=== PATIENT | male | born 1965 | race Caucasian/White ===

== ENCOUNTER 2024-09-25 00:22 | Observation (INO) | payer OTHER, SELFPAY ==
--- NOTE | ~2024-09-25 | XR_ITS ---
EXAMINATION: XR abdomen gastric tube insert DATE: 09/25/2024 01:53 INDICATION: Gastrostomy tube replacement. TECHNIQUE: A supine view of the abdomen was obtained. COMPARISON: CT abdomen and pelvis 09/02/2019 FINDINGS: The lower abdomen is excluded. There are no dilated loops of bowel. The gastrostomy tube ti p is in the stomach. There is contrast in the tube and in the stomach and duodenum. IMPRESSION: 1. Gastrostomy tube tip in expected position. Reviewed, dictated and finalized at location A. CAL RECORD CODER
[2024-09-25 00:19] VITALS: BP 125/73; PULSE 88; RESP 15; TEMP 36.8; O2SAT 94
--- NOTE | 2024-09-25 01:35 | ED_ITS ---
HPI - Recheck/Abnormal Lab/Rx General Chief Complaint: Recheck/Abnormal Lab/Rx Stated Complaint: Pulled out g-tube Time Seen by Provider: 09/25/24 00:44 Source: patient Mode of arrival: EMS Limitations: no limitations History of Present Illness HPI narrative: Patient is a 58-year-old male who presents the ED via EMS with report of G-tube dislodgement. Patient is a resident of [facility]. 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 States his g-tube became dislodged today. Believes it became dislodged this morning. Reports some pain around his G-tube site. Denies fevers. Related Data Home Medications Medication Instructions Recorded Confirmed aspirin 81 mg chewable tablet 81 mg PO DAILY 04/25/20 06/10/23 multivitamin with minerals-iron mg PO 04/25/20 06/10/23 fumarate 9 mg iron/15 mL oral liquid (Multi Vitamin) aripiprazole 5 mg tablet 5 mg PO QHS 06/10/23 06/10/23 buspirone 15 mg tablet 15 mg PO TID 06/10/23 06/10/23 clonazepam 0.5 mg tablet 0.5 mg PO TID 06/10/23 06/10/23 ezetimibe 10 mg tablet 10 mg PO DAILY 06/10/23 06/10/23 famotidine 40 mg tablet 40 mg PO QHS 06/10/23 06/10/23 fentanyl 100 mcg/hr transdermal 1 patch transdermal Q72H 06/10/23 06/10/23 patch fentanyl 75 mcg/hr transdermal 1 patch transdermal Q72H 06/10/23 06/10/23 patch loratadine 10 mg tablet 10 mg PO DAILY 06/10/23 06/10/23 montelukast 10 mg tablet 10 mg PO DAILY 06/10/23 06/10/23 naloxone 4 mg/actuation nasal 4 mg intranasal Q2M PRN 06/10/23 06/10/23 spray (Narcan) onabotulinumtoxinA 200 unit 200 unit IM [id number] 06/10/23 06/10/23 solution for injection (Botox) oxycodone 15 mg tablet 30 mg PO Q4H 06/10/23 06/10/23 sertraline 100 mg tablet 100 mg PO BID 08/01/23 08/01/23 sumatriptan succinate 25 mg tablet See Rx Instructions PO .COMPLEX 06/10/23 06/10/23 trazodone 150 mg tablet 150 mg PO QHS PRN 06/10/23 06/10/23 Allergies Allergy/AdvReac Type Severity Reaction Status Date / Time adhesive tape Allergy Intermediate RASH Verified 06/10/23 16:40 Vqxfhwi-ABB-SkQ Reductase Allergy Intermediate ANXIETY Verified 06/10/23 16:40 Inhibitor [Qumamqr-Xpn-Uru Reductase Inhibitor] Review of Systems Review of Systems: All systems reviewed & are unremarkable except as noted in HPI. All systems reviewed & are unremarkable except as noted in HPI and below PMFSH Past Medical History Medical History Allergies Anxiety Arthritis Cancer of mouth Coronary artery disease Fluid level behind tympanic membrane of left ear GERD (gastroesophageal reflux disease) Heart attack Heart disease Migraine Family History Family History Mother Hypertension Grandparent Heart disease Social History Social History Social History: Caffeine-tea daily Smoking status: Never smoker Smoking end date: 11/10/12 Alcohol intake: never Substance use: never Substance use type: does not use Lack of Transportation: No Lack of Food: Sometimes True Current Housing: I Have Housing Concerned About Future Housing: No Difficulty Paying Gas/Electric Bills: No Difficulty Paying for Meds: No Currently Unemployed: No Education: High School Diploma/GED Difficulty w/ Childcare or Family Care: No Living arrangements: with family Gender identity (if verbalized by the patient): Male Spiritual care concerns: No Agree to blood products: Yes Exam Narrative: GENERAL: Appears older than stated age, chronically ill-appearing, non-toxic, in no acute distress. HEAD: Normocephalic. Large bandage over L ear/mandibular region. RESPIRATORY: Airway patent, respirations nonlabored. CARDIOVASCULAR: Regular rate and rhythm ABDOMINAL: Soft, nondistended. Normoactive BS. G-tube site in L upper abdomen. MUSCULOSKELETAL: No gross deformities. SKIN: Warm, dry, normal color. NEURO: A&O X3. Speech clear. RUBY. PSYCHIATRIC: Somewhat flat affect. Normal interaction. Course Vital Signs Vital signs: Vital Signs Temperature 98.2 F 09/25/24 00:19 Pulse Rate 88 09/25/24 00:19 Respiratory Rate 15 09/25/24 00:19 Blood Pressure 125/73 09/25/24 00:19 Pulse Oximetry 94 09/25/24 00:19 Oxygen Delivery Room Air 09/25/24 00:19 Temperature 98.2 F 09/25/24 00:19 Pulse Rate 78 09/25/24 02:38 Respiratory Rate 14 09/25/24 02:38 Blood Pressure 110/77 09/25/24 02:38 Pulse Oximetry 97 09/25/24 02:38 Oxygen Delivery Room Air 09/25/24 00:19 MDM - Recheck/Abnormal Lab/Rx MDM Narrative Medical decision making narrative: Patient with dislodged G-tube. Currently on hospice. Attempted to replace 16 German G-tube however unable to pass tubing. Meeting lots of resistance past a couple cm. Was able to place 14F Hobson coude catheter. Confirmed with imaging. Discussed case with SURY Waddell, advised to admit overnight and will replace in the am. Discussed case with Kaylynn RUCKER hospitalist, accepted patient for admission. Patient in agreement with plan. Patient is with [facility]. They were updated on care plan. Medical Records Attestation: I reviewed the patient's medical records. Imaging Data Attestation: I personally reviewed and interpreted this imaging study as follows: My impression: XR G-tube: No contrast extravasation. G-tube in place. Discharge Plan Discharge Clinical Impression: Dislodged gastrostomy tube, Cancer of mouth Patient Disposition: Still a Patient Condition: Stable Prescriptions: No Action Multi Vitamin 9 mg iron/15 mL liquid PO aspirin 81 mg tablet,chewable 81 mg PO DAILY buspirone 15 mg tablet 15 mg PO TID sertraline 100 mg tablet 100 mg PO BID fentanyl 100 mcg/hr patch 72 hour 1 patch transdermal Q72H fentanyl 75 mcg/hr patch 72 hour 1 patch transdermal Q72H oxycodone 15 mg tablet 30 mg PO Q4H sumatriptan succinate 25 mg tablet See Rx Instructions PO .COMPLEX Rx Instructions: take 1 tab at onset of headache; if no relief may repeat 1 tab after at least 2 hrs; max = 4 tabs/24 hr PO loratadine 10 mg tablet 10 mg PO DAILY trazodone 150 mg tablet 150 mg PO QHS PRN aripiprazole 5 mg tablet 5 mg PO QHS clonazepam 0.5 mg tablet 0.5 mg PO TID montelukast 10 mg tablet 10 mg PO DAILY famotidine 40 mg tablet 40 mg PO QHS ezetimibe 10 mg tablet 10 mg PO DAILY naloxone [Narcan] 4 mg/actuation spray,non-aerosol 4 mg intranasal Q2M PRN Rx Instructions: spray 1 dose into ONE nostril; alternate nostrils w each dose until help arrives Botox 200 unit recon soln 200 unit IM [id number] Rx Instructions: as a single dose Follow-up/Referrals: Salvatore,KACI Rousseau [Primary Care Provider] -
[2024-09-25] MEDS: HYDROmorphone HCL INJ (*CRX) 1 MG/ML SYR IM (01:43)
[2024-09-25 02:38] VITALS: BP 110/77; PULSE 78; RESP 14; O2SAT 97
[2024-09-25] MEDS: HYDROmorphone HCL INJ (*CRX) 1 MG/ML SYR IV PUSH (02:51)
--- NOTE | 2024-09-25 03:10 | P.HP_ITS ---
H&P: HPI History of Present Illness Date/Time: 09/25/24 04:00 Chief Complaint: Dislodged G-tube. Narrative: This is a pleasant 58-year-old male with metastatic oral cancer who presented to the emergency department via EMS from [facility] after his G-tube became dislodged. The patient provides the following history. Sometime yesterday morning his G-tube got dislodged and there were difficulties getting it replaced in the ED and he is being admitted in this setting for GI consult. He is on [facility] for his terminal cancer and they were contacted and are aware of the patient's hospitalization. At the time my evaluation the patient has no complaints and denies fever, headache, chest pain, shortness of breath, abdominal pain, nausea, vomiting, and diarrhea. Review of Systems Review of Systems: 12 systems were reviewed and are negativ e except for as per HPI. [facility] Past Medical History Medical History (Updated 09/25/24 @ 06:30 by Kaylynn Huntley PA-C) Allergies Anxiety Arthritis Cancer of mouth Coronary artery disease Gastroesophageal reflux disease Heart attack Heart disease Migraine Oral cancer Surgical History Surgical History (Updated 09/25/24 @ 06:30 by Kaylynn Huntley PA-C) History of coronary artery stent placement Family History Family History Mother Hypertension Grandparent Heart disease Social History Social History (Updated 09/25/24 @ 06:31 by Kaylynn Huntley PA-C) Social History: Surrogate medical decision maker: Lexie Greenberg, mother. Code status: Do not resuscitate. Smoking status: Former smoker Smoking end date: 11/10/12 Alcohol intake: never Substance use: never Substance use type: does not use Do You Feel Safe in your Home?: Yes Lack of Transportation: No Lack of Food: Never True Current Housing: I Have Housing Concerned About Future Housing: No Difficulty Paying Gas/Electric Bills: No Difficulty Paying for Meds: No Currently Unemployed: No Education: High School Diploma/GED Difficulty w/ Childcare or Family Care: No Spiritual care concerns: No Agree to blood products: Yes Meds Home Medications and Allergies Home Medications Medication Instructions Recorded Confirmed Type aspirin 81 mg chewable tablet 81 mg feeding tube DAILY 04/25/20 09/25/24 History buspirone 15 mg tablet 30 mg PO Q12H 06/10/23 09/25/24 History clonazepam 0.5 mg tablet 0.5 mg PO Q12H 06/10/23 09/25/24 History ezetimibe 10 mg tablet 10 mg PO DAILY 06/10/23 09/25/24 History famotidine 40 mg tablet 20 mg PO BID 06/10/23 09/25/24 History Adults Multivitamin 1 tab-cap feeding tube DAILY 09/25/24 09/25/24 History acetaminophen 320 mg/10 mL oral 320 mg PO Q4H PRN Pain (Scale 09/25/24 09/25/24 History suspension Score 1-3) baclofen 10 mg tablet 10 mg feeding tube TID 09/25/24 09/25/24 History bisacodyl 10 mg rectal suppository 10 mg RECTAL PRN PRN Constipation 09/25/24 09/25/24 History fentanyl 50 mcg/hr transdermal 1 patch topical .Q72HR 09/25/24 09/25/24 History patch magnesium hydroxide 400 mg/5 mL 30 ml feeding tube HS PRN 09/25/24 09/25/24 History oral suspension (Milk of Magnesia) Constipation methadone 10 mg/5 mL oral solution 10 mg PO BID 09/25/24 09/25/24 History morphine 10 mg/5 mL oral solution 5 mg feeding tube Q2H PRN Pain 09/25/24 09/25/24 History (Scale Score 7-10) morphine 10 mg/5 mL oral solution 5 mg feeding tube Q8H 09/25/24 09/25/24 History ondansetron 4 mg disintegrating 8 mg feeding tube Q8H PRN Nausea 09/25/24 09/25/24 History tablet polyethylene glycol 17 g feeding tube DAILY 09/25/24 09/25/24 History pregabalin 50 mg capsule 50 mg feeding tube HS 09/25/24 09/25/24 History sennosides 8.6 mg capsule (senna) 17.2 mg feeding tube BID 09/25/24 09/25/24 History silver sulfadiazine 1 % topical 1 applic topical DAILY 09/25/24 09/25/24 History cream sumatriptan succinate 100 mg tablet 100 mg PO DAILY PRN Headache 09/25/24 09/25/24 History tamsulosin 0.4 mg capsule 0.4 mg PO DAILY 09/25/24 09/25/24 History Allergies Allergy/AdvReac Type Severity Reaction Status Date / Time adhesive tape Allergy Intermediate RASH Verified 09/25/24 04:58 Nqevopi-BDE-VfT Reductase Allergy Intermediate ANXIETY Verified 09/25/24 04:58 Inhibitor [Rzedtuw-Iwr-Ehb Reductase Inhibitor] Vital Signs Vital Signs - 24 hr 09/25/24 00:19 09/25/24 02:38 Temperature 98.2 F Pulse Rate 88 78 Respiratory Rate 15 14 Blood Pressure 125/73 110/77 Pulse Oximetry 94 97 Oxygen Delivery Room Air Exam Narrative: General: Chronically ill-appearing gentleman the semi-Weiss position in bed. Weight: 50.8 kg. BMI: 20.9. HEENT: PERRL, EOMI. There is a dressing over the left ear which was not removed for examination. Sclera anicteric. Tacky mucous membranes. Maxillary obturator in place. Neck: Supple. Respiratory: Lungs are clear to auscultation bilaterally. Cardiovascular: Regular rate and rhythm with S1-S2. Gastrointestinal: Abdomen is soft, nontender, and nondistended with positive bowel sounds. Skin: Warm and dry. Extremities: No cyanosis, clubbing, or significant edema. Radial and pedal pulses intact. Neurological: Alert. Cranial nerves 2-12 are grossly intact. No gross focal deficits to casual conversation. Psychiatric: Pleasant and cooperative with normal mood and affect. Assessment and Plan Assessment and plan (1) Dislodged gastrostomy tube: Code(s): T85.528A - Displacement of other gastrointestinal prosthetic devices, implants and grafts, initial encounter Status: Acute (2) Hospice care patient: Code(s): Z51.5 - Encounter for palliative care Status: Acute (3) Oral cancer: Code(s): C06.9 - Malignant neoplasm of mouth, unspecified Status: Acute Plan The patient presented to the emergency department for evaluation after his G- tube became dislodged as detailed in HPI. Labs, imaging, EKG, and all reports were personally reviewed. He will be NPO in anticipation of replaced G-tube placement today. Analgesics are available as needed. He is on hospice care through [facility] and they are aware of his hospitalization. His home medications will be reviewed and resumed as appropriate. Findings and treatment plan were discussed with the patient. Questions were solicited and answered to satisfaction. The patient's medical management will be taken over by the hospitalist team in a.m. Quality VTE Prophylaxis VTE prophylaxis: mechanical ordered If No VTE Prophylaxis Answer both mechanical and pharmacologic: Reason no pharmacologic proph: medical contraindication (upcoming procedure) The patient has been admitted under observation status. Hospitalist MIPS Advance Care Plan I have confirmed that the patient's Advanced Care Plan is present, code status is documented, or surrogate decision maker is listed in patient medical record.: Yes Medication Reconciliation I have utilized all available resources to obtain, update and review the patients current medications (includes all prescriptions, OTC, herbals, ca nnabis, and nutritional supplements).: Yes
[2024-09-25 03:24] VITALS: BMI 20.9
[2024-09-25 03:37] VITALS: BMI 20.9
[2024-09-25 03:39] VITALS: BMI 24.4
[2024-09-25 03:45] VITALS: BP 123/72; PULSE 83; RESP 18; TEMP 36.5; O2SAT 97
[2024-09-25] MEDS: MORPHINE SULFATE (*CRX) 4 MG/ML INJ IV PUSH ×3 (06:32→20:15)
--- NOTE | 2024-09-25 11:46 | PC.NURSE ---
Addendum entered by Hannah Melendez RN 09/25/24 14:21: Dr. Hammond came to bedside and replaced catheter to G-tube site. No other orders at this time. Original Note: Catheter that was in place to keep G-tube site open became dislodged. Dr. Hammond called and notified. No intervention at this time. Provider to see patient.
--- NOTE | 2024-09-25 12:54 | P.CONGI_ITS ---
Assessment and Plan Assessment and plan (1) PEG tube malfunction: Code(s): K94.23 - Gastrostomy malfunction Status: Acute Assessment and Plan: Temporary smallwood catheter placed back and balloon insuflated with 8 cc of saline. Will schedule formal PEG placement with endoscopy on Friday am. Plan as above GI Consult Note Consult date/time: 09/25/24 12:54 HPI: Chaim Romo is [id number] male with metastatic oral cancer who presented to the emergency department via EMS from [facility] after his G- tube became dislodged. The ER provider was able to keep the G tube orifice patent with a 12 F smallwood catheter. Review of Systems Review of Systems: All systems reviewed & are unremarkable except as noted in HPI and below PMFSH Past Medical History Medical History (Updated 09/25/24 @ 12:57 by Iron Hammond MD) Allergies Anxiety Arthritis Cancer of mouth Coronary artery disease Gastroesophageal reflux disease Heart attack Heart disease Migraine Oral cancer Surgical History Surgical History (Updated 09/25/24 @ 06:30 by Kaylynn Huntley PA-C) History of coronary artery stent placement Family History Family History Mother Hypertension Grandparent Heart disease Social History Social History (Updated 09/25/24 @ 06:31 by Kaylynn Huntley PA-C) Social History: Surrogate medical decision maker: Lexie Greenberg, . Code status: Do not resuscitate. Smoking status: Former smoker Smoking end date: 11/10/12 Alcohol intake: never Substance use: never Substance use type: does not use Do You Feel Safe in your Home?: Yes Lack of Transportation: No Lack of Food: Never True Current Housing: I Have Housing Concerned About Future Housing: No Difficulty Paying Gas/Electric Bills: No Difficulty Paying for Meds: No Currently Unemployed: No Education: High School Diploma/GED Difficulty w/ Childcare or Family Care: No Spiritual care concerns: No Agree to blood products: Yes Meds Home Medications and Allergies Home Medications Medication Instructions Recorded Confirmed Type aspirin 81 mg chewable tablet 81 mg feeding tube DAILY 04/25/20 09/25/24 History buspirone 15 mg tablet 30 mg PO Q12H 06/10/23 09/25/24 History clonazepam 0.5 mg tablet 0.5 mg PO Q12H 06/10/23 09/25/24 History ezetimibe 10 mg tablet 10 mg PO DAILY 06/10/23 09/25/24 History famotidine 40 mg tablet 20 mg PO BID 06/10/23 09/25/24 History Adults Multivitamin 1 tab-cap feeding tube DAILY 09/25/24 09/25/24 History acetaminophen 320 mg/10 mL oral 320 mg PO Q4H PRN Pain (Scale 09/25/24 09/25/24 History suspension Score 1-3) baclofen 10 mg tablet 10 mg feeding tube TID 09/25/24 09/25/24 History bisacodyl 10 mg rectal suppository 10 mg RECTAL PRN PRN Constipation 09/25/24 09/25/24 History fentanyl 50 mcg/hr transdermal 1 patch topical .Q72HR 09/25/24 09/25/24 History patch magnesium hydroxide 400 mg/5 mL 30 ml feeding tube HS PRN 09/25/24 09/25/24 History oral suspension (Milk of Magnesia) Constipation methadone 10 mg/5 mL oral solution 10 mg PO BID 09/25/24 09/25/24 History morphine 10 mg/5 mL oral solution 5 mg feeding tube Q2H PRN Pain 09/25/24 09/25/24 History (Scale Score 7-10) morphine 10 mg/5 mL oral solution 5 mg feeding tube Q8H 09/25/24 09/25/24 History ondansetron 4 mg disintegrating 8 mg feeding tube Q8H PRN Nausea 09/25/24 09/25/24 History tablet polyethylene glycol 17 g feeding tube DAILY 09/25/24 09/25/24 History pregabalin 50 mg capsule 50 mg feeding tube HS 09/25/24 09/25/24 History sennosides 8.6 mg capsule (senna) 17.2 mg feeding tube BID 09/25/24 09/25/24 History silver sulfadiazine 1 % topical 1 applic topical DAILY 09/25/24 09/25/24 History cream sumatriptan succinate 100 mg tablet 100 mg PO DAILY PRN Headache 09/25/24 09/25/24 History tamsulosin 0.4 mg capsule 0.4 mg PO DAILY 09/25/24 09/25/24 History Allergies Allergy/AdvReac Type Severity Reaction Status Date / Time adhesive tape Allergy Intermediate RASH Verified 09/25/24 04:58 Dtedhws-CWL-KuR Reductase Allergy Intermediate ANXIETY Verified 09/25/24 04:58 Inhibitor [Jfmueuo-Hkw-Naf Reductase Inhibitor] Vital Signs Vital Signs - 24 hr 09/25/24 00:19 09/25/24 02:38 09/25/24 03:45 Temperature 98.2 F 97.7 F Pulse Rate 88 78 83 Respiratory Rate 15 14 18 Blood Pressure 125/73 110/77 123/72 Pulse Oximetry 94 97 97 Oxygen Delivery Room Air Exam Narrative: Small PEG orifice, smallwood catheter dislodged.
--- NOTE | 2024-09-25 13:03 | PM.IMPN ---
Progress Note: A&P Assessment and Plan (1) Dislodged gastrostomy tube: Code(s): T85.528A - Displacement of other gastrointestinal prosthetic devices, implants and grafts, initial encounter Status: Acute Assessment and Plan: Patient G-tube dislodgement. He is unsure when the G-tube became dislodged. In the ED they attempted to replace 16 Korean G-tube however unable to pass tubing due to resistance. Was able to place 14F Smallwood coude catheter. Abdomen XR: G tube tip in expected position On exam today 09/25, G tube opening with slight bloody discharge. Smallwood that was placed in the ED was found dislodged. GI Dr. Hammond made aware and no need for reinsertion at that time NG tube ordered for tube feeds for the interim, however patient refused placement GI consulted Temporary smallwood catheter replaced and balloon insufflated with 8 cc of saline. Will schedule formal PEG placement with endoscopy on Friday am. (2) Hospice care patient: Code(s): Z51.5 - Encounter for palliative care Status: Acute Assessment and Plan: He is on hospice care through [facility] and they are aware of his hospitalization. 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 Time Spent With Patient Time with patient: 25 - 35 minutes Subjective Date/time seen: 09/25/24 13:03 Interval history: 58-year-old male with metastatic oral cancer on [facility] who presented to the emergency department via EMS from [facility] after his G-tube became dislodged. Patient is pleasant lying comfortably in bed. he endorses slight abdominal pain. On exam his G tube opening has slightly bloody discharge. Smallwood that was placed in the ED was found dislodged. SURY Hammond made aware and no need for reinsertion at that time . Patient is unsure when this G tube became dislodged however per nurse the tubing was in place this morning during her assessment. Patient has no new complaints denying chest pain, shortness a breath palpitations, nausea / vomiting. He was evaluated by GI today who plans for a PEG tube placement on Friday. Patient was having NG tube in the interim however he refuses. Review of Systems Review of Systems: 12 systems were reviewed and are negative except for as per HPI. All systems reviewed & are unremarkable except as noted in HPI and below Exam Narrative: AF HR 83 RR 18 SpO2 97 BP 123/72 General: frail male in no acute respiratory distress who is chronically ill appearing, lying semi recumbent in bed. HEENT: Normocephalic. Atraumatic. Extraocular movement intact. Sclera clear and anicteric. No facial asymmetry. Dressing over his left ear which was not removed for exam. Chest: Lungs are clear to auscultation bilaterally. No wheezes or crackles. CV: Heart was regular rate and rhythm. S1/S2. No murmurs, gallops, or rubs. Abd: Abdomen was soft. Generalized tenderness without guarding. Positive bowel sounds. No organomegaly or masses. G tube opening with slight bloody discharge. Red rubber that was placed in the ED was found dislodged. Nondistended. Ext: No clubbing, cyanosis, or edema. 2+ DP pulses bilaterally. Neuro: Patient is alert. Cranial nerves 2-12 are intact. Speech is clear. Psych: Normal mood and affect. Patient is pleasant and cooperative. Skin: Warm and dry. No rashes noted. Objective Data Vital Signs Vital Signs: Vital Signs - 24 hr 09/25/24 00:19 09/25/24 02:38 09/25/24 03:45 Temperature 98.2 F 97.7 F Pulse Rate 88 78 83 Respiratory Rate 15 14 18 Blood Pressure 125/73 110/77 123/72 Pulse Oximetry 94 97 97 Oxygen Delivery Room Air Intake/Output Intake/Output: Intake & Output 09/22/24 09/23/24 09/24/24 09/25/24 23:59 23:59 23:59 23:59 Intake Total 0 Balance 0 Meds/Results Medications: Active Medications Generic Name Dose Route Start Last Admin Trade Name Freq PRN Reason Stop Dose Admin Morphine Sulfate 4 mg 09/25/24 06:25 09/25/24 06:32 Morphine Sulfate (*Crx) 4 Mg/Ml Inj IV PUSH 4 mg Q4H PRN Administration Pain Rated 7-10 Radiology Results: ITS Impressions Abdomen X-Ray 09/25/24 06:16 IMPRESSION: 1. Gastrostomy tube tip in expected position. Quality VTE Prophylaxis VTE prophylaxis: mechanical ordered
[2024-09-25 14:00] VITALS: BP 119/77; PULSE 83; RESP 16; TEMP 36.4; O2SAT 96
[2024-09-25 20:00] VITALS: PULSE 83; RESP 16; O2SAT 96
[2024-09-25 22:00] VITALS: PULSE 78; RESP 18; TEMP 36.8; O2SAT 96
[2024-09-26] MEDS: MORPHINE SULFATE (*CRX) 4 MG/ML INJ IV PUSH ×5 (01:01→20:32)
[2024-09-26 06:00] VITALS: BP 124/84; PULSE 87; RESP 18; TEMP 36.6; O2SAT 97
[2024-09-26] MEDS: ONDANSETRON INJ 4 MG/2 ML VIAL IV PUSH ×4 (06:31→20:48)
[2024-09-26] MEDS: DEXTROSE 5%/0.45% SOD CHL 1,000 ML 100 ML IV CONT ×2 (06:31→16:35)
--- NOTE | 2024-09-26 08:02 | PM.IMPN ---
Progress Note: A&P Assessment and Plan (1) Dislodged gastrostomy tube: Code(s): T85.528A - Displacement of other gastrointestinal prosthetic devices, implants and grafts, initial encounter Status: Acute Assessment and Plan: Patient G-tube dislodgement. He is unsure when the G-tube became dislodged but believes it was sometime this morning 09/25. In the ED they attempted to replace 16 Vietnamese G-tube however unable to pass tubing due to resistance. Was able to place 14F Smallwood coude catheter. Abdomen XR: G tube tip in expected position On exam today 09/25, G tube opening with slight bloody discharge. Smallwood that was placed in the ED was found dislodged. GI Dr. Hammond made aware and no need for reinsertion at that time NG tube ordered for tube feeds for the interim, however patient is unable to have NG tube placed given tumor burden GI consulted Temporary smallwood catheter replaced and balloon insufflated with 8 cc of saline. Will schedule formal PEG placement with endoscopy on Friday at 1300 (2) Hospice care patient: Code(s): Z51.5 - Encounter for palliative care Status: Acute Assessment and Plan: He is on hospice care through [facility] and they are aware of his hospitalization. 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 Time Spent With Patient Time with patient: 25 - 35 minutes Subjective Date/time seen: 09/26/24 08:02 Interval history: 58-year-old male with metastatic oral cancer on [facility] who presented to the emergency department via EMS from [facility] after his G-tube became dislodged. Patient is pleasant lying comfortably in bed. He continues to endorse generalized abdominal pain. He states that this started after the G-tube replacement in the ED. he has no other complaints denying chest pain, shortness a breath, palpitations, nausea / vomiting. he was evaluated by GI today who plans to place a PEG tube tomorrow afternoon. Review of Systems Review of Systems: All systems reviewed & are unremarkable except as noted in HPI and below Exam Narrative: AF HR 87 RR 18 SpO2 97 BP 124/84 General: frail male in no acute respiratory distress who is chronically ill appearing, lying semi recumbent in bed. HEENT: Normocephalic. Atraumatic. Extraocular movement intact. Sclera clear and anicteric. No facial asymmetry. Dressing over his left ear which was not removed for exam. Chest: Lungs are clear to auscultation bilaterally. No wheezes or crackles. CV: Heart was regular rate and rhythm. S1/S2. No murmurs, gallops, or rubs. Abd: Abdomen was soft. Generalized tenderness without guarding. Positive bowel sounds. No organomegaly or masses. Smallwood catheter in place to keep G tube orifice patent. Nondistended. Ext: No clubbing, cyanosis, or edema. 2+ DP pulses bilaterally. Neuro: Patient is alert. Cranial nerves 2-12 are intact. Speech is clear. Objective Data Vital Signs Vital Signs: Vital Signs - 24 hr 09/25/24 09:13 09/25/24 14:00 09/25/24 20:00 Temperature 97.6 F Pulse Rate 83 83 Respiratory Rate 16 16 Blood Pressure 119/77 Pulse Oximetry 96 96 Oxygen Delivery Room Air Room Air 09/25/24 22:00 09/26/24 06:00 Temperature 98.2 F 97.9 F Pulse Rate 78 87 Respiratory Rate 18 18 Blood Pressure 124/84 Pulse Oximetry 96 97 Oxygen Delivery Intake/Output Intake/Output: Intake & Output 09/23/24 09/24/24 09/25/24 09/26/24 23:59 23:59 23:59 23:59 Intake Total 0 Output Total 650 0 Balance -650 0 Meds/Results Medications: Active Medications Generic Name Dose Route Start Last Admin Trade Name Freq PRN Reason Stop Dose Admin Dextrose/Sodium Chloride 1,000 mls @ 100 mls/hr 09/26/24 06:00 09/26/24 06:31 Dextrose 5% Sodium Chloride 0.45% IV CONT 100 mls/hr .Q10H [place] Administration Morphine Sulfate 4 mg 09/25/24 06:25 09/26/24 05:38 Morphine Sulfate (*Crx) 4 Mg/Ml Inj IV PUSH 4 mg Q4H PRN Administration Pain Rated 7-10 Ondansetron HCl 4 mg 09/26/24 06:00 09/26/24 06:31 Ondansetron Inj 4 Mg/2 Ml Vial IV PUSH 4 mg Q4H PRN Administration Nausea And Vomiting Radiology Results: ITS Impressions Abdomen X-Ray 09/25/24 06:16 IMPRESSION: 1. Gastrostomy tube tip in expected position. Quality VTE Prophylaxis VTE prophylaxis: mechanical ordered
--- NOTE | 2024-09-26 10:17 | WPDGIPROGNO ---
Progress Note: A&P Assessment and Plan (1) PEG tube malfunction: Code(s): K94.23 - Gastrostomy malfunction Status: Acute Assessment and Plan: The patient is in stable condition with respect to yesterday. PEG placement scheduled for tomorrow after 1:00 p.m.. Time Spent With Patient Time with patient: less than 15 minutes Subjective Date/time seen: 09/26/24 10:17 Objective Data Vital Signs Vital Signs: Vital Signs - 24 hr 09/25/24 14:00 09/25/24 20:00 09/25/24 22:00 Temperature 97.6 F 98.2 F Pulse Rate 83 83 78 Respiratory Rate 16 16 18 Blood Pressure 119/77 Pulse Oximetry 96 96 96 Oxygen Delivery Room Air 09/26/24 06:00 09/26/24 08:53 Temperature 97.9 F Pulse Rate 87 Respiratory Rate 18 Blood Pressure 124/84 Pulse Oximetry 97 Oxygen Delivery Room Air Intake/Output Intake/Output: Intake & Output 09/23/24 09/24/24 09/25/24 09/26/24 23:59 23:59 23:59 23:59 Intake Total 0 Output Total 650 0 Balance -650 0 Meds/Results Medications: Active Medications Generic Name Dose Route Start Last Admin Trade Name Freq PRN Reason Stop Dose Admin Dextrose/Sodium Chloride 1,000 mls @ 100 mls/hr 09/26/24 06:00 09/26/24 06:31 Dextrose 5% Sodium Chloride 0.45% IV CONT 100 mls/hr .Q10H [place] Administration Morphine Sulfate 4 mg 09/25/24 06:25 09/26/24 05:38 Morphine Sulfate (*Crx) 4 Mg/Ml Inj IV PUSH 4 mg Q4H PRN Administration Pain Rated 7-10 Ondansetron HCl 4 mg 09/26/24 06:00 09/26/24 06:31 Ondansetron Inj 4 Mg/2 Ml Vial IV PUSH 4 mg Q4H PRN Administration Nausea And Vomiting Radiology Results: ITS Impressions Abdomen X-Ray 09/25/24 06:16 IMPRESSION: 1. Gastrostomy tube tip in expected position.
[2024-09-26 14:00] VITALS: BP 124/71; PULSE 82; RESP 16; TEMP 36.8; O2SAT 97
[2024-09-26 20:30] VITALS: PULSE 73; RESP 20; O2SAT 97
[2024-09-26 20:34] VITALS: BP 135/78; PULSE 73; RESP 20; TEMP 36.4; O2SAT 97
[2024-09-27] VITALS (10 sets, daily range): BP systolic 106–1125; BP diastolic 65–83; PULSE 63–87; RESP 12–20; TEMP 36.1–37.3; O2SAT 95–98; BMI 21.5
[2024-09-27] MEDS: MORPHINE SULFATE (*CRX) 4 MG/ML INJ IV PUSH ×3 (02:05→20:21)
[2024-09-27] MEDS: DEXTROSE 5%/0.45% SOD CHL 1,000 ML 100 ML IV CONT (02:05)
[2024-09-27] MEDS: ONDANSETRON INJ 4 MG/2 ML VIAL IV PUSH ×4 (02:05→21:17)
--- NOTE | 2024-09-27 08:46 | PM.IMPN ---
Progress Note: A&P Assessment and Plan (1) Dislodged gastrostomy tube: Code(s): T85.528A - Displacement of other gastrointestinal prosthetic devices, implants and grafts, initial encounter Status: Acute Assessment and Plan: Patient G-tube dislodgement. He is unsure when the G-tube became dislodged but believes it was sometime this morning 09/25. In the ED they attempted to replace 16 Lithuanian G-tube however unable to pass tubing due to resistance. Was able to place 14F Smallwood coude catheter. Abdomen XR: G tube tip in expected position On exam today 09/25, G tube opening with slight bloody discharge. Smallwood that was placed in the ED was found dislodged. GI Dr. Hammond made aware and no need for reinsertion at that time NG tube ordered for tube feeds for the interim, however patient is unable to have NG tube placed given tumor burden GI consulted Temporary smallwood catheter replaced and balloon insufflated with 8 cc of saline. Per RN this was found out on am assessment Schedule formal PEG placement with endoscopy today with Dr. Hammond Nutrition consulted, will start tube feeds per their recommendations when patient is cleared (2) Hospice care patient: Code(s): Z51.5 - Encounter for palliative care Status: Acute Assessment and Plan: He is on hospice care through [facility] and they are aware of his hospitalization. 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 Time Spent With Patient Time with patient: 25 - 35 minutes Subjective Date/time seen: 09/27/24 08:46 Interval history: 58-year-old male with metastatic oral cancer on [facility] who presented to the emergency department via EMS from [facility] after his G-tube became dislodged. Patient is pleasant lying in his bed. Per RN on morning assessment patient Smallwood catheter that was maintaining patentcy for patient's G tube had fallen out. Patient is scheduled to have a new peg tube placed today. After placement will start patient on tube feeds. Nutrition recommendations have been made. Patient endorses slight abdominal pain but has no other complaints denying chest pain, shortness of breath, nausea/vomiting. Review of Systems Review of Systems: All systems reviewed & are unremarkable except as noted in HPI and below Exam Narrative: AF HR 70 RR 18 SpO2 97 BP 125/69 General: frail male in no acute respiratory distress who is chronically ill appearing, lying semi recumbent in bed. HEENT: Normocephalic. Atraumatic. Extraocular movement intact. Sclera clear and anicteric. No facial asymmetry. Dressing over his left ear which was not removed for exam. Chest: Lungs are clear to auscultation bilaterally. No wheezes or crackles. CV: Heart was regular rate and rhythm. S1/S2. No murmurs, gallops, or rubs. Abd: Abdomen was soft. Generalized tenderness without guarding. Positive bowel sounds. No organomegaly or masses. G tube opening with slight bloody discharge. Nondistended. Ext: No clubbing, cyanosis, or edema. 2+ DP pulses bilaterally. Neuro: Patient is alert. Cranial nerves 2-12 are intact. Speech is clear. Objective Data Vital Signs Vital Signs: Vital Signs - 24 hr 09/26/24 08:53 09/26/24 14:00 09/26/24 20:34 Temperature 98.2 F 97.5 F L Pulse Rate 82 73 Respiratory Rate 16 20 Blood Pressure 124/71 135/78 Pulse Oximetry 97 97 Oxygen Delivery Room Air 09/26/24 20:30 09/27/24 06:14 Temperature 99.2 F Pulse Rate 73 87 Respiratory Rate 20 18 Blood Pressure 106/66 Pulse Oximetry 97 95 Oxygen Delivery Room Air Intake/Output Intake/Output: Intake & Output 09/24/24 09/25/24 09/26/24 09/27/24 23:59 23:59 23:59 23:59 Intake Total 0 1000 1000 Output Total 650 350 Balance -919 837 2104 Meds/Results Medications: Active Medications Generic Name Dose Route Start Last Admin Trade Name Freq PRN Reason Stop Dose Admin Dextrose/Sodium Chloride 1,000 mls @ 100 mls/hr 09/26/24 06:00 09/27/24 02:05 Dextrose 5% Sodium Chloride 0.45% IV CONT 100 mls/hr .Q10H [place] Administration Morphine Sulfate 4 mg 09/25/24 06:25 09/27/24 08:01 Morphine Sulfate (*Crx) 4 Mg/Ml Inj IV PUSH 4 mg Q4H PRN Administration Pain Rated 7-10 Ondansetron HCl 4 mg 09/26/24 06:00 09/27/24 08:01 Ondansetron Inj 4 Mg/2 Ml Vial IV PUSH 4 mg Q4H PRN Administration Nausea And Vomiting Radiology Results: ITS Impressions Abdomen X-Ray 09/25/24 06:16 IMPRESSION: 1. Gastrostomy tube tip in expected position. Quality VTE Prophylaxis VTE prophylaxis: mechanical ordered
--- NOTE | 2024-09-27 09:41 | PC.NURSE ---
Called [facility] to get patient's previous tube feeding recommendations. Per Zhane RN at facility, patient was on Osmolite 1.5 at 55 mL/hr with a 45 mL flush per hour. Receiving [employer] Custodian Nisha called and notified on these recommendations. Patient is going down for peg tube placement at 13:30 today. Yoanna aware, states patient will likely discharge tomorrow back to [facility] if tube feedings tolerated after surgery.
--- NOTE | 2024-09-27 11:45 | PC.NURSE ---
To GI Lab per [renate], IV [20 R FA]. Report given to [Alexandra].
--- NOTE | 2024-09-27 11:47 | PCDIET ---
TUBE FEEDING RECOMMENDATIONS: Osmolite 1.5 @ 55 ml/h provides 1815 kcal, 75 g protein, 922 kcal. Flush 180 ml q 4 hours. Total water 2000 ml/day.
[2024-09-27] MEDS: LACTATED RINGERS 1,000 ML 150 ML IV CONT (12:12)
--- NOTE | 2024-09-27 12:23 | P.PNAN_ITS ---
Anes - Initial Pre Proc Eval Procedure: Operation Date: 09/27/24 13:30 Proposed Procedures p Percutaneous Endoscopic Gastrostomy - Iron Hammond MD Date/Time: 09/27/24 12:23 Surgeon: Kadie Davis PA-C Pre Op Diagnosis: dislodged g-tube Patient Data Age: 58 Gender: M Height: 1.68 m Weight: 60.5 kg Last Vital Signs Temp 36.1 C L 09/27/24 12:08 Pulse 70 09/27/24 12:08 Resp 18 09/27/24 12:08 BP 1125/69 H 09/27/24 12:08 Pulse Ox 97 09/27/24 12:08 O2 Del Method Room Air 09/27/24 12:08 Allergies Allergy/AdvReac Type Severity Reaction Status Date / Time adhesive tape Allergy Intermediate RASH Verified 09/27/24 11:57 Nhdapxz-RUT-SmV Reductase AdvReac Intermediate ANXIETY Verified 09/27/24 12:01 Inhibitor [Jjmqhde-Yuu-Xop Reductase Inhibitor] Home Medications Medication Instructions Recorded Confirmed Type aspirin 81 mg chewable tablet 81 mg feeding tube DAILY 04/25/20 09/25/24 History buspirone 15 mg tablet 30 mg PO Q12H 06/10/23 09/25/24 History clonazepam 0.5 mg tablet 0.5 mg PO Q12H 06/10/23 09/25/24 History ezetimibe 10 mg tablet 10 mg PO DAILY 06/10/23 09/25/24 History famotidine 40 mg tablet 20 mg PO BID 06/10/23 09/25/24 History Adults Multivitamin 1 tab-cap feeding tube DAILY 09/25/24 09/25/24 History acetaminophen 320 mg/10 mL oral 320 mg PO Q4H PRN Pain (Scale 09/25/24 09/25/24 History suspension Score 1-3) baclofen 10 mg tablet 10 mg feeding tube TID 09/25/24 09/25/24 History bisacodyl 10 mg rectal suppository 10 mg RECTAL PRN PRN Constipation 09/25/24 09/25/24 History fentanyl 50 mcg/hr transdermal 1 patch topical .Q72HR 09/25/24 09/25/24 History patch magnesium hydroxide 400 mg/5 mL 30 ml feeding tube HS PRN 09/25/24 09/25/24 History oral suspension (Milk of Magnesia) Constipation methadone 10 mg/5 mL oral solution 10 mg PO BID 09/25/24 09/25/24 History morphine 10 mg/5 mL oral solution 5 mg feeding tube Q2H PRN Pain 09/25/24 09/25/24 History (Scale Score 7-10) morphine 10 mg/5 mL oral solution 5 mg feeding tube Q8H 09/25/24 09/25/24 History ondansetron 4 mg disintegrating 8 mg feeding tube Q8H PRN Nausea 09/25/24 09/25/24 History tablet polyethylene glycol 17 g feeding tube DAILY 09/25/24 09/25/24 History pregabalin 50 mg capsule 50 mg feeding tube HS 09/25/24 09/25/24 History sennosides 8.6 mg capsule (senna) 17.2 mg feeding tube BID 09/25/24 09/25/24 History silver sulfadiazine 1 % topical 1 applic topical DAILY 09/25/24 09/25/24 History cream sumatriptan succinate 100 mg tablet 100 mg PO DAILY PRN Headache 09/25/24 09/25/24 History tamsulosin 0.4 mg capsule 0.4 mg PO DAILY 09/25/24 09/25/24 History Patient hx anesthesia problems: none Family hx anesthesia problems: none Results Review: All pre-operative results and documents have been reviewed as part of the pre- operative evaluation. [facility] Past Medical History Medical History Allergies Anxiety Arthritis Cancer of mouth Coronary artery disease Gastroesophageal reflux disease Heart attack Heart disease Migraine Oral cancer Surgical History Surgical History History of coronary artery stent placement Family History Family History Mother Hypertension Grandparent Heart disease Social History Social History Social History: Surrogate medical decision maker: Lexie Greenberg, . Code status: Do not resuscitate. Smoking status: Former smoker Smoking end date: 11/10/12 Alcohol intake: never Substance use: never Substance use type: does not use Do You Feel Safe in your Home?: Yes Lack of Transportation: No Lack of Food: Never True Current Housing: I Have Housing Concerned About Future Housing: No Difficulty Paying Gas/Electric Bills: No Difficulty Paying for Meds: No Currently Unemployed: No Education: High School Diploma/GED Difficulty w/ Childcare or Family Care: No Spiritual care concerns: No Agree to blood products: Yes Anes - Eval Final PreProcedure Day of Procedure 09/27/24 12:23 Patient weight: normal Heart: regular rate and rhythm Lungs: clear to auscultation Airway: Mallampati scale class IV, special considerations poor opening and poor dentition and other (hard palate excision- open to nasopharynx, upper plate) Neurological: alert and oriented Last oral intake: >/= 8 hours ASA classification: IV Emergent: no Anesthetic plan: proceed Anesthesia type and monitoring: general GIVS and standard monitoring Results Review: All pre-operative results and documents have been reviewed as part of the pre- operative evaluation. Informed Consent: The patient's anesthetic plan and its attendant risks and benefits were discussed with the patient/family/POA. Questions were solicited and answers provided to the satisfaction of the patient/family/POA.
--- NOTE | 2024-09-27 13:32 | P.PNAN_ITS ---
Anes - Eval Pre Procedure Procedure: Operation Date: 09/27/24 13:30 Proposed Procedures p Percutaneous Endoscopic Gastrostomy - Iron Hammond MD Date/Time: 09/27/24 13:32 Pre Op Diagnosis: dislodged g-tube Patient Data Age: 58 Gender: M Height: 1.68 m Weight: 60.5 kg Last Vital Signs Temp 36.1 C L 09/27/24 12:08 Pulse 70 09/27/24 12:08 Resp 18 09/27/24 12:08 BP 1125/69 H 09/27/24 12:08 Pulse Ox 97 09/27/24 12:08 O2 Del Method Room Air 09/27/24 12:08 Allergies Allergy/AdvReac Type Severity Reaction Status Date / Time adhesive tape Allergy Intermediate RASH Verified 09/27/24 11:57 Qjutzqo-XYR-XcY Reductase AdvReac Intermediate ANXIETY Verified 09/27/24 12:01 Inhibitor [Vvotimf-Mye-Iat Reductase Inhibitor] Home Medications Medication Instructions Recorded Confirmed Type aspirin 81 mg chewable tablet 81 mg feeding tube DAILY 04/25/20 09/25/24 History buspirone 15 mg tablet 30 mg PO Q12H 06/10/23 09/25/24 History clonazepam 0.5 mg tablet 0.5 mg PO Q12H 06/10/23 09/25/24 History ezetimibe 10 mg tablet 10 mg PO DAILY 06/10/23 09/25/24 History famotidine 40 mg tablet 20 mg PO BID 06/10/23 09/25/24 History Adults Multivitamin 1 tab-cap feeding tube DAILY 09/25/24 09/25/24 History acetaminophen 320 mg/10 mL oral 320 mg PO Q4H PRN Pain (Scale 09/25/24 09/25/24 History suspension Score 1-3) baclofen 10 mg tablet 10 mg feeding tube TID 09/25/24 09/25/24 History bisacodyl 10 mg rectal suppository 10 mg RECTAL PRN PRN Constipation 09/25/24 09/25/24 History fentanyl 50 mcg/hr transdermal 1 patch topical .Q72HR 09/25/24 09/25/24 History patch magnesium hydroxide 400 mg/5 mL 30 ml feeding tube HS PRN 09/25/24 09/25/24 History oral suspension (Milk of Magnesia) Constipation methadone 10 mg/5 mL oral solution 10 mg PO BID 09/25/24 09/25/24 History morphine 10 mg/5 mL oral solution 5 mg feeding tube Q2H PRN Pain 09/25/24 09/25/24 History (Scale Score 7-10) morphine 10 mg/5 mL oral solution 5 mg feeding tube Q8H 09/25/24 09/25/24 History ondansetron 4 mg disintegrating 8 mg feeding tube Q8H PRN Nausea 09/25/24 09/25/24 History tablet polyethylene glycol 17 g feeding tube DAILY 09/25/24 09/25/24 History pregabalin 50 mg capsule 50 mg feeding tube HS 09/25/24 09/25/24 History sennosides 8.6 mg capsule (senna) 17.2 mg feeding tube BID 09/25/24 09/25/24 History silver sulfadiazine 1 % topical 1 applic topical DAILY 09/25/24 09/25/24 History cream sumatriptan succinate 100 mg tablet 100 mg PO DAILY PRN Headache 09/25/24 09/25/24 History tamsulosin 0.4 mg capsule 0.4 mg PO DAILY 09/25/24 09/25/24 History Patient hx anesthesia problems: none Family hx anesthesia problems: none Results Review: All pre-operative results and documents have been reviewed as part of the pre- operative evaluation. [facility], [facility] Past Medical History Medical History Allergies Anxiety Arthritis Cancer of mouth Coronary artery disease Gastroesophageal reflux disease Heart attack Heart disease Migraine Oral cancer Surgical History Surgical History History of coronary artery stent placement Family History Family History Mother Hypertension Grandparent Heart disease Social History Social History Social History: Surrogate medical decision maker: Lexie Greenberg, mother. Code status: Do not resuscitate. Smoking status: Former smoker Smoking end date: 11/10/12 Alcohol intake: never Substance use: never Substance use type: does not use Do You Feel Safe in your Home?: Yes Lack of Transportation: No Lack of Food: Never True Current Housing: I Have Housing Concerned About Future Housing: No Difficulty Paying Gas/Electric Bills: No Difficulty Paying for Meds: No Currently Unemployed: No Education: High School Diploma/GED Difficulty w/ Childcare or Family Care: No Spiritual care concerns: No Agree to blood products: Yes Exam Day of Procedure 09/27/24 13:32 Risks: spoke with patient about airway concerns and patient was agreeable to redacting the DNI for procedure. all risks and benefits were discussed. all patient questions were answered and he fully understood risks. Patient wished to take away the DNI for the procedure and anesthesia.
--- NOTE | 2024-09-27 13:32 | WPDGIPROGNO ---
Progress Note: A&P Assessment and Plan (1) PEG tube malfunction: Code(s): K94.23 - Gastrostomy malfunction Status: Acute Assessment and Plan: The patient's PEG tube became dislodged 48 hours ago. He is down here for PEG replacement. However, we might encounter some difficulties at the moment of endoscopy due to his advanced oral cancer. If that is the case, will consult surgery for surgically placed gastrostomy tube. Plan PEG Placement. Subjective Date/time seen: 09/27/24 13:32 Objective Data Vital Signs Vital Signs: Vital Signs - 24 hr 09/26/24 14:00 09/26/24 20:34 09/26/24 20:30 Temperature 98.2 F 97.5 F L Pulse Rate 82 73 73 Respiratory Rate 16 20 20 Blood Pressure 124/71 135/78 Pulse Oximetry 97 97 97 Oxygen Delivery Room Air 09/27/24 06:14 09/27/24 08:00 09/27/24 12:08 Temperature 99.2 F 96.9 F L Pulse Rate 87 70 Respiratory Rate 18 18 Blood Pressure 106/66 1125/69 H Pulse Oximetry 95 97 Oxygen Delivery Room Air Room Air Intake/Output Intake/Output: Intake & Output 09/24/24 09/25/24 09/26/24 09/27/24 23:59 23:59 23:59 23:59 Intake Total 0 1000 1000 Output Total 650 350 Balance -160 820 6188 Meds/Results Medications: Active Medications Generic Name Dose Route Start Last Admin Trade Name Freq PRN Reason Stop Dose Admin Dextrose/Sodium Chloride 1,000 mls @ 100 mls/hr 09/26/24 06:00 09/27/24 02:05 Dextrose 5% Sodium Chloride 0.45% IV CONT 100 mls/hr .Q10H [place] Administration Lactated Ringer's 1,000 mls @ 150 mls/hr 09/27/24 12:00 09/27/24 12:12 Lr - Lactated Ringers Iv IV CONT 150 mls/hr .[id number] [place] Administration Morphine Sulfate 4 mg 09/25/24 06:25 09/27/24 08:01 Morphine Sulfate (*Crx) 4 Mg/Ml Inj IV PUSH 4 mg Q4H PRN Administration Pain Rated 7-10 Ondansetron HCl 4 mg 09/26/24 06:00 09/27/24 08:01 Ondansetron Inj 4 Mg/2 Ml Vial IV PUSH 4 mg Q4H PRN Administration Nausea And Vomiting Radiology Results: ITS Impressions Abdomen X-Ray 09/25/24 06:16 IMPRESSION: 1. Gastrostomy tube tip in expected position.
--- NOTE | 2024-09-27 13:55 | SUR.PREOP ---
No antibiotics per Dr Hammond.
--- NOTE | 2024-09-27 14:48 | PC.NURSE ---
Patient back on the floor at 14:48.
[2024-09-27] MEDS: MORPHINE SULFATE ORAL CONC SOL (*CRX) 10 MG/0.5 ML SYRINGE 5 MG FEED TUBE ×2 (15:27→22:32)
[2024-09-27] MEDS: BACLOFEN 10 MG TABLET FEED TUBE (15:59)
[2024-09-27] MEDS: methADONE HCL (*CRX) 10 MG TABLET FEED TUBE (15:59)
[2024-09-27] MEDS: SENNOSIDES 8.6 MG TABLET 17.2 MG FEED TUBE (15:59)
[2024-09-27] MEDS: FAMOTIDINE 20 MG TABLET FEED TUBE (15:59)
--- NOTE | 2024-09-27 16:01 | PC.NURSE ---
Spoke to Dr. Hammond about patient's emesis after feed tube medication administration and starting of the tube feeds. MD wants tube feeds to be held for four hours. Resume tube feedings at 20:00.
--- NOTE | 2024-09-27 16:10 | WPDGIPROGNO ---
Progress Note: A&P Assessment and Plan (1) PEG tube malfunction: Code(s): K94.23 - Gastrostomy malfunction Status: Acute Assessment and Plan: The PEG tube is correctly placed. Floor nurse instructed to hold next feedings until 8:00 p.m.. Will sign off for now, please contact if there are problems with the PEG. Subjective Date/time seen: 09/27/24 16:10 Interval history: The patient had his PEG replaced successfully 1 hour ago. I just received a call from the nurse saying that he vomited some of tube feeding contents. Objective Data Vital Signs Vital Signs: Vital Signs - 24 hr 09/26/24 20:34 09/26/24 20:30 09/27/24 06:14 Temperature 97.5 F L 99.2 F Pulse Rate 73 73 87 Respiratory Rate 20 20 18 Blood Pressure 135/78 106/66 Pulse Oximetry 97 97 95 Oxygen Delivery Room Air 09/27/24 08:00 09/27/24 12:08 09/27/24 14:21 Temperature 96.9 F L Pulse Rate 70 70 Respiratory Rate 18 15 Blood Pressure 1125/69 H 144/82 H Pulse Oximetry 97 97 Oxygen Delivery Room Air Room Air Room Air 09/27/24 14:31 09/27/24 14:38 09/27/24 14:55 Temperature 97.7 F Pulse Rate 80 71 68 Respiratory Rate 15 20 19 Blood Pressure 142/83 H 132/75 126/65 Pulse Oximetry 97 97 98 Oxygen Delivery Room Air Room Air 09/27/24 15:10 09/27/24 15:40 Temperature 97.7 F 97.7 F Pulse Rate 63 76 Respiratory Rate 18 20 Blood Pressure 124/70 143/75 H Pulse Oximetry 96 98 Oxygen Delivery Intake/Output Intake/Output: Intake & Output 09/24/24 09/25/24 09/26/24 09/27/24 23:59 23:59 23:59 23:59 Intake Total 0 1000 2366.7 Output Total 650 350 Balance -431 458 6000.7 Meds/Results Medications: Active Medications Generic Name Dose Route Start Last Admin Trade Name Freq PRN Reason Stop Dose Admin Acetaminophen 325 mg 09/27/24 15:16 Acetaminophen Elixir 325 Mg/10.15 Ml Udc FEED TUBE Q4H PRN Pain (Scale Score 1-3) Aspirin 81 mg 09/28/24 09:00 Aspirin 81 Mg Chewable Tablet FEED TUBE DAILY [facility] Baclofen 10 mg 09/27/24 17:00 09/27/24 15:59 Baclofen 10 Mg Tablet FEED TUBE 10 mg TID [facility] Administration Bisacodyl 10 mg 09/27/24 14:44 Bisacodyl 10 Mg Suppository RECTAL PRN PRN Constipation Buspirone HCl 30 mg 09/27/24 21:00 Buspirone Hcl 10 Mg Tablet FEED TUBE Q12H [facility] Clonazepam 0.5 mg 09/27/24 21:00 Clonazepam (*Crx) 0.5 Mg Tablet FEED TUBE Q12H [facility] Ezetimibe 10 mg 09/28/24 09:00 Ezetimibe 10 Mg Tablet FEED TUBE DAILY [facility] Famotidine 20 mg 09/27/24 17:00 09/27/24 15:59 Famotidine 20 Mg Tablet FEED TUBE 20 mg BID [facility] Administration Fentanyl 50 mcg 09/27/24 16:10 Fentanyl (*Crx) 50 Mcg Patch TRANSDERM Q72HR [facility] Magnesium Hydroxide 30 ml 09/27/24 14:44 Magnesium Hydroxide Susp 30 Ml Udc FEED TUBE HS PRN Constipation Methadone HCl 10 mg 09/27/24 17:00 09/27/24 15:59 Methadone Hcl (*Crx) 10 Mg Tablet FEED TUBE 10 mg BID [facility] Administration Morphine Sulfate 4 mg 09/25/24 06:25 09/27/24 08:01 Morphine Sulfate (*Crx) 4 Mg/Ml Inj IV PUSH 4 mg Q4H PRN Administration Pain Rated 7-10 Morphine Sulfate 5 mg 09/27/24 15:07 Morphine Sulfate Oral Conc Carmela (*Crx) 10 Mg/0.5 Ml Syringe FEED TUBE Q2H PRN Pain (Scale Score 7-10) Morphine Sulfate 5 mg 09/27/24 15:10 09/27/24 15:27 Morphine Sulfate Oral Conc Carmela (*Crx) 10 Mg/0.5 Ml Syringe FEED TUBE 5 mg Q8HR [facility] Administration Multivitamins/Minerals 15 ml 09/28/24 09:00 Multivit W/ Iron, Minerals 15 Ml Liquid (*Bkc) FEED TUBE DAILY [facility] Ondansetron HCl 4 mg 09/26/24 06:00 09/27/24 15:27 Ondansetron Inj 4 Mg/2 Ml Vial IV PUSH 4 mg Q4H PRN Administration Nausea And Vomiting Ondansetron HCl 8 mg 09/27/24 14:44 Ondansetron Hcl Odt 4 Mg Tablet SUBLINGUAL Q8H PRN Nausea Polyethylene Glycol 17 gm 09/28/24 09:00 Polyethylene Glycol 3350 17 Gm Powd.Pack FEED TUBE DAILY [facility] Pregabalin 50 mg 09/27/24 21:00 Pregabalin (*Crx) 50 Mg Capsule FEED TUBE HS [facility] Senna 17.2 mg 09/27/24 17:00 09/27/24 15:59 Sennosides 8.6 Mg Tablet FEED TUBE 17.2 mg BID [facility] Administration Silver Sulfadiazine 1 applic 09/28/24 09:00 Silver Sulfadiazine 1% Cr 400 Gm Jar (*Bkc) TOPICAL DAILY [facility] Radiology Results: ITS Impressions Abdomen X-Ray 09/25/24 06:16 IMPRESSION: 1. Gastrostomy tube tip in expected position.
[2024-09-27] MEDS: fentaNYL (*CRX) 50 MCG PATCH TRANSDERM (16:24)
[2024-09-27] MEDS: PREGABALIN (*CRX) 50 MG CAPSULE FEED TUBE (21:17)
[2024-09-27] MEDS: busPIRone HCL 10 MG TABLET 30 MG FEED TUBE (21:18)
[2024-09-27] MEDS: clonazePAM (*CRX) 0.5 MG TABLET FEED TUBE (21:18)
[2024-09-28] MEDS: MORPHINE SULFATE (*CRX) 4 MG/ML INJ IV PUSH ×2 (00:08→04:16)
[2024-09-28 06:00] VITALS: BP 100/59; PULSE 78; RESP 20; TEMP 36.6; O2SAT 96
[2024-09-28] MEDS: MORPHINE SULFATE ORAL CONC SOL (*CRX) 10 MG/0.5 ML SYRINGE 5 MG FEED TUBE ×2 (06:02→13:21)
[2024-09-28] MEDS: ASPIRIN 81 MG CHEWABLE TABLET FEED TUBE (09:39)
[2024-09-28] MEDS: BACLOFEN 10 MG TABLET FEED TUBE ×2 (09:39→13:21)
[2024-09-28] MEDS: methADONE HCL (*CRX) 10 MG TABLET FEED TUBE (09:39)
[2024-09-28] MEDS: EZETIMIBE 10 MG TABLET FEED TUBE (09:39)
[2024-09-28] MEDS: FAMOTIDINE 20 MG TABLET FEED TUBE (09:39)
[2024-09-28] MEDS: clonazePAM (*CRX) 0.5 MG TABLET FEED TUBE (09:39)
[2024-09-28] MEDS: SENNOSIDES 8.6 MG TABLET 17.2 MG FEED TUBE (09:39)
[2024-09-28] MEDS: busPIRone HCL 10 MG TABLET 30 MG FEED TUBE (09:39)
[2024-09-28 09:40] VITALS: O2SAT 97
[2024-09-28] MEDS: MULTIVIT W/ IRON, MINERALS 15 ML LIQUID (*BKC) FEED TUBE (09:40)
[2024-09-28] MEDS: polyethylene glycoL 3350 17 GM POWD.PACK FEED TUBE (09:40)
[2024-09-28 09:46] VITALS: BP 101/53; PULSE 82; O2SAT 97
--- NOTE | 2024-09-28 10:39 | P.DS_ITS ---
DS: Admitting Diagnosis Discharge Date 09/28/2024 Admitting Diagnosis dislodged G-tube hospice care oral cancer DS: Discharge Diagnosis Discharge Diagnosis (1) Dislodged gastrostomy tube: Code(s): T85.528A - Displacement of other gastrointestinal prosthetic devices, implants and grafts, initial encounter Status: Acute (2) Hospice care patient: Code(s): Z51.5 - Encounter for palliative care Status: Acute (3) Oral cancer: Code(s): C06.9 - Malignant neoplasm of mouth, unspecified Status: Acute DS: Summary Hospital Course Reason for hospitalization: dislodged G-tube hospice care oral cancer Hospital Course: 58-year-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 after his G-tube became dislodged. In the ED they attempted to replace 16 Yi G-tube however unable to pass tubing due to resistance. Was able to place 14F Smallwood coude catheter, placement confirmed on XR. On exam 09/25, G tube opening with slight bloody discharge. Smallwood that was placed in the ED was found dislodged. GI Dr. Ivey made aware and he placed a temporary smallwood catheter replaced and balloon insufflated with 8 cc of saline. The following day this temporary catheter was again found removed. Patient underwent a formal PEG tube placement with endoscopy on 09/[address] ivey. After PEG tube placement the patient was originally not tolerating tube feeds at goal having one episode of vomiting. GI was informed and patients tube feeds were placed on hold until 1999. After that time had elapsed patient was restarted on his tube feeds and was able to succes sfully advanced to goal. Patient was tolerating tube feeds well, denying any nausea /vomiting. At time of discharge patient had no complaints denying chest pain, shortness a breath, palpitations, and nausea/vomiting. He endorsed slight abdominal pain around the new PEG tube site however noted that this was well controlled on his current pain regimen. patient discharged back to his residential in a stable condition to return on hospice care Status at Discharge Functional status at discharge: bed bound Time Spent with Patient Time attestation: Total time spent providing and/or coordinating discharge services: Time spent: Greater than 30 minutes Exam Narrative: AF HR 82 RR 20 SPO2 97 BP 101/53 General: frail male in no acute respiratory distress who is chronically ill appearing, lying semi recumbent in bed. HEENT: Normocephalic. Atraumatic. Extraocular movement intact. Sclera clear and anicteric. No facial asymmetry. Dressing over his left ear which was not removed for exam. Chest: Lungs are clear to auscultation bilaterally. No wheezes or crackles. CV: Heart was regular rate and rhythm. S1/S2. No murmurs, gallops, or rubs. Abd: Abdomen was soft. Generalized tenderness without guarding. Positive bowel sounds. No organomegaly or masses. PEG tube in place with tube feeds going. No signs of infection (erythema, edema, or drainage) noted to the insertion site. Nondistended. Ext: No clubbing, cyanosis. 2+ DP pulses bilaterally. Slight bilateral edema to the ankles. DS: Data Data Completed and Pending Completed studies during hospitalization: abdomen xr Discharge Plan Discharge Attending physician on discharge: Felisha Rodriguez Discharging Clinician: Kadie Davis Anticipated Discharge Date/Time: 09/28/24 10:37 Patient Disposition: NH Senior Care/Asst Living Activity: as tolerated Diet: as tolerated and tube feeding Discharge Instructions: Discharge disposition: Patient was admitted to the hospital for dislodged PEG tube GI evaluated patient and PEG tube was replaced Tube feeds were resumed and patient is tolerating at goal Continue tube feeds: Osmolite 1.5 Teto at 55ml/hr with free water flushes Take medications as prescribed Return to hospice care at [facility] Return to the emergency department if he developed sudden shortness of breath, chest pain, nausea, vomiting, upset stomach or intractable diarrhea Return to the emergency department if you develop fever greater than 101.5 Follow-up with the primary care physician within 1 weeks Thank you for [facility] for your healthcare needs Patient Language: Turkmen Stand Alone Forms: General Discharge Information Follow-up/Referrals: Salvatore,Cydney Bates, ANP [Primary Care Provider] - Discharge Medications: Continued aspirin 81 mg tablet,chewable 81 mg feeding tube DAILY buspirone 15 mg tablet 30 mg PO Q12H clonazepam 0.5 mg tablet 0.5 mg PO Q12H famotidine 40 mg tablet 20 mg PO BID ezetimibe 10 mg tablet 10 mg PO DAILY Adults Multivitamin 1 tab-cap feeding tube DAILY silver sulfadiazine 1 % cream 1 applic TOPICAL DAILY Rx Instructions: cleanse wound to the left face with NS and Hydrogen peroxide. Apply to left face mixed woth collagen powderand lidocaine % with calcium alginate and dry dressing fentanyl 50 mcg/hr patch 72 hour 1 patch topical .Q72HR methadone 10 mg/5 mL Solution 10 mg PO BID sumatriptan succinate 100 mg tablet 100 mg PO DAILY PRN (Reason: Headache) magnesium hydroxide [Milk of Magnesia] 400 mg/5 mL Suspension 30 ml feeding tube HS PRN (Reason: Constipation) Rx Instructions: no bm for 3 days tamsulosin 0.4 mg capsule 0.4 mg PO DAILY baclofen 10 mg tablet 10 mg feeding tube TID bisacodyl 10 mg Suppository 10 mg RECTAL PRN PRN (Reason: Constipation) Rx Instructions: daily prn if no results from mom morphine 10 mg/5 mL solution 5 mg feeding tube Q2H PRN (Reason: Pain (Scale Score 7-10)) Rx Instructions: breakthrough pain morphine 10 mg/5 mL solution 5 mg feeding tube Q8H ondansetron 4 mg tablet,disintegrating 8 mg feeding tube Q8H PRN (Reason: Nausea) senna 8.6 mg Capsule 17.2 mg feeding tube BID pregabalin 50 mg capsule 50 mg feeding tube HS acetaminophen 320 mg/10 mL Suspension 320 mg PO Q4H PRN (Reason: Pain (Scale Score 1-3)) polyethylene glycol 17 g feeding tube DAILY Date of admission: 09/25/24 02:26 Primary Care Provider: Salvatore,Cydney Bates Admitting Provider: Jd Decker Attending physician on admission: Kadie Davis Condition: Stable Hospitalist MIPS Heart Failure (Exclusion) Patient has history of Heart Transplant or Left Ventricular Assistive Device?: No IF YES, STOP HERE Heart Failure (Qualifier) Patient has current or prior documentation of LVEF less than or equal to 40%, or mod/servere depressed LVSF?: No IF NO, STOP HERE
[2024-09-28] MEDS: SILVER SULFADIAZINE 1% CR 400 GM JAR (*BKC) 1 APPLIC TOPICAL (13:26)
== END 2024-09-28 14:29 ==
LOC: ANHED 02:47 → ANH2MED 03:32
PROVIDERS: Internal Medicine Gastroenterology; Admitting Provider Internal Medicine; Emergency Provider Physician Assistant; PCP Nurse Practitioner; Visit Provider Student in an Organized Health Care Education/Training Program
PROC: 0DH63UZ Insertion of Feeding Device into Stomach, Percutaneous Approach (ICD-10-PCS; CPT 43246; principal; 2024-09-27 13:30)
DX: T85.528A Displacement of other gastrointestinal prosthetic devices, implants and grafts, initial encounter (principal); C06.9 Malignant neoplasm of mouth, unspecified; I25.10 Atherosclerotic heart disease of native coronary artery without angina pectoris; K21.9 Gastro-esophageal reflux disease without esophagitis; Z51.5 Encounter for palliative care
CPT/HCPCS: 43246; 96372; 96374; 99221; 99285; A9270; G0378; J1171; J2003; J2270; J2405; J2704; J7120